=== PATIENT | male | born 1990 | race Caucasian/White ===

== ENCOUNTER → 2024-01-23 16:36 | Outpatient (REF) | payer BC, SELFPAY | LOC: RAD 16:36 | PROVIDERS: ATTENDING PHYSICIAN Family Medicine; FAMILY PHYSICIAN Family Medicine | DX: M25.551 Pain in right hip (principal) | CPT/HCPCS: 73502 ==

== ENCOUNTER → 2025-04-28 17:10 | Outpatient (REF) | payer BC, SELFPAY | LOC: RAD 17:10 | PROVIDERS: ATTENDING PHYSICIAN Physician Assistant; FAMILY PHYSICIAN Family Medicine | DX: M79.671 Pain in right foot (principal) | CPT/HCPCS: 73630 ==